=== PATIENT | female | born 1955 | race Caucasian/White ===

== ENCOUNTER 2018-12-22 05:40 | Day surgery (SDC) | payer BC ==
[~2018-12-22] VITALS: Ht 167.6 cm; Wt 68.0 kg
[~2018-12-22 05:40] MED LIST: ASPIRIN325 MG PO; COMBIVENT RESPIM4 GM INH; RANITIDINE HCL150 MG PO; TUSSIN100 MG/52 PO; VENTOLIN HFA18 GM INH
--- NOTE | 2018-12-22 09:16 | NUR ---
12/22/18 0916 Caroline Santillan 0820 PT ARRIVED IN PACU WIDE AWAKE WITH NO C/O'S. 0840 XRAY AT BEDSIDE DOING 3 VIEW OF L FOOT. 0850 DC INSTRUCTIONS GIVEN. 0900 SURGICAL SHOE PLACED ON L FOOT. LEFT VIA W/C WITH RN TO CAR.
--- NOTE | 2019-01-05 09:07 | OR ---
[facility] [address], [place] [address] Signed DATE OF OPERATION: 12/22/2018 SURGEON: Raji Augustine DPM PREOPERATIVE DIAGNOSES: 1. Tailor bunion, left foot. 2. Osteophyte, medial left hallux. POSTOPERATIVE DIAGNOSES: 1. Tailor bunion, left foot. 2. Osteophyte, medial left hallux. END FRAZER SURGEON: Kaz Martinez DPM ANESTHESIA: IV general with local block, left foot. SPECIMEN: To pathology, none. DESCRIPTION OF PROCEDURE: The patient was brought to the operating room and placed on the table in the supine position. Anesthesia Department administered IV sedation, after which a local block was given to the left foot using a total of 14 mL, 1:1 mixture, 2% lidocaine plain and 0.5% ropivacaine plain. The left leg and foot were then prepped and draped in the usual sterile manner. An Esmarch was used for hemostasis. PROCEDURE #1: Tailor bunionectomy, left 5th metatarsal. Attention was initially directed to the dorsal/lateral aspect left 5th metatarsal head, where a linear longitudinal incision was made. The incision was approximately 4 cm in length. Initially full-thickness through the dermis then deepened through subcutaneous tissue using careful dissection and cautery as necessary for hemostasis. Once at the level of the deep fascia and joint capsule, an incision was made deep to bone reflecting soft tissues to expose the lateral aspect of the 5th metatarsal head. Bony prominence to this site was immediately noted. This was then resected removing a small amount of bone to the lateral aspect of the 5th metatarsal head with power instrumentation. The Electronically Signed By: RAJI AUGUSTINE DPM 01/05/19 0907 PATIENT NAME: OSMAR FOOTE OPERATIVE REPORT DATE OF : 53 REPORT #: [id number] PHYSICIAN: RAJI AUGUSTINE DPM PCP: TRISTAN BACH MD REPORT IS CONFIDENTIAL AND NOT TO BE RELEASED WITHOUT AUTHORIZATION [facility] [address], [place] [address] Signed patient's primary problem, however, was increased pressure and callus at the plantar 5th metatarsal head. Therefore, at this time, it was also deemed necessary to resect a small amount of bone from the plantar 5th metatarsal head. This was also done with power instrumentation, removing a thin section of bone at this site. The lateral and plantar aspects of the 5th metatarsal head then smoothed with a hand rasp. The surgical site then irrigated with copious amounts of normal saline and deep soft tissues closed using 4-0 Vicryl, subcutaneous tissue closed using 4-0 Vicryl and skin closed using 5-0 nylon monofilament suture. PROCEDURE #2: Exostectomy, medial left hallux. Attention was directed to the medial aspect left hallux where a linear longitudinal incision was made centered over the medial condyle at the base of the distal phalanx. The incision was initially full-thickness through the dermis then deepened through subcutaneous tissue using careful dissection and cautery as necessary for hemostasis. The incision then deepened to bone and soft tissue was reflected to expose the bony prominence at this site, which was then resected using hand instrumentation and smoothed using a hand rasp. The surgical site was then irrigated with copious amounts of normal saline. Deep soft tissues then closed using 4-0 Vicryl and skin closed using 5-0 nylon monofilament suture. Dressings were then applied using Adaptic, Betadine-soaked gauze, dry gauze, Kerlix fluffs, Flexicon, and Coban for mild compression. Dressings to both surgical sites were the same. A postoperative injection was given prior to placement of the dressings. Injection utilized 10 cc of a 9:1 mixture, 0.5% ropivacaine plain, and dexamethasone phosphate, the injection was divided between both surgical sites. ESTIMATED BLOOD LOSS: Less than 5 mL. INTRAOPERATIVE COMPLICATIONS: None. Raji Augustine DPM Electronically Signed By: RAJI AUGUSTINE DPM 01/05/19 0907 PATIENT NAME: OSMAR FOOTE OPERATIVE REPORT DATE OF : 53 REPORT #: [id number] PHYSICIAN: RAJI AUGUSTINE DPM PCP: TRISTAN BACH MD REPORT IS CONFIDENTIAL AND NOT TO BE RELEASED WITHOUT AUTHORIZATION [address] [address] Signed GO/STAR /[id number] Copies: ~ Electronically Signed By: RAJI AUGUSTINE DPM 01/05/19 0907 PATIENT NAME: OSMAR FOOTE OPERATIVE REPORT DATE OF : 53 REPORT #: [id number] PHYSICIAN: RAJI AUGUSTINE DPM PCP: TRISTAN BACH MD REPORT IS CONFIDENTIAL AND NOT TO BE RELEASED WITHOUT AUTHORIZATION
== END 2018-12-22 09:00 | disposition home or self-care (01) ==
LOC: OPS 05:40 → DS 05:40 → OPS 06:45
PROVIDERS: Podiatrist Foot Surgery
PROC: 0QBP0ZZ Excision of Left Metatarsal, Open Approach (ICD-10-PCS; principal; 2018-12-22 06:45)
PROC: 0QBP0ZZ Excision of Left Metatarsal, Open Approach (ICD-10-PCS; 2018-12-22 06:45)
DX: M21.622 Bunionette of left foot (principal); M25.775 Osteophyte, left foot; J45.909 Unspecified asthma, uncomplicated; G62.9 Polyneuropathy, unspecified; F17.210 Nicotine dependence, cigarettes, uncomplicated; Z88.0 Allergy status to penicillin; Z88.1 Allergy status to other antibiotic agents; Z88.5 Allergy status to narcotic agent; Z79.899 Other long term (current) drug therapy; Z79.82 Long term (current) use of aspirin; Z79.51 Long term (current) use of inhaled steroids
CPT/HCPCS: 01480; 73630; J1100; J1885; J2405; J2704; J2795; J3010; J7120

== ENCOUNTER 2019-03-24 13:41 | Emergency (ER) | payer BC ==
[~2019-03-24] VITALS: Ht 167.6 cm; Wt 68.0 kg
--- OUTSIDE RECORDS SUMMARY | ~2019-03-24 | XMS | Encounter Summary ---
Demographics + + + | Address | [address] | | | [place] [address] | + + + | Home Phone | | + + + | Preferred Language | Unknown | + + + | Marital Status | | + + + | Protestant Affiliation | Unknown | + + + | Race | Unknown | + + + | Ethnic Group | Unknown | + + + Author + + + | Author | [facility] | | | and [place] | + + + | Organization | [facility] | | | and [place] | + + + | Address | Unknown | + + + | Phone | Unavailable | + + + Support + + + + + | Name | Relationship | Address | Phone | + + + + + | Home Krishna | ECON | [address] | | | | | [place] | | | | | [address] | | + + + + + | Daisy Castillo | ECON | Unknown | | + + + + + Care Team Providers + +------+ + | Care Bacon Skinner Name | Role | Phone | + +------+ + | Tien Rojsa MD | PCP | Unavailable | + +------+ + Reason for Referral Diagnostic/Screening (Routine) +--------+--------+ + + + + | Status | Reason | Specialty | Diagnoses / | Referred By | Referred To | | | | | Procedures | Contact | Contact | +--------+--------+ + + + + | Closed | | Radiology | Diagnoses | | [address] | | | | | Pulmonary | Saqib, | [address] | | | | | nodules | Kevin | [place], | | | | | Procedures | [place] | [place] [address] | | | | | CT Chest wo | [address] | Phone: | | | | | Contrast | [address] [place] | [phone] | | | | | | [place] | Fax: | | | | | | [address] | [phone] | | | | | | Phone: | | | | | | | [phone] | | | | | | | Fax: | | | | | | | [phone] | | +--------+--------+ + + + + Diagnostic/Screening (Routine) +--------+--------+ + + + + | Status | Reason | Specialty | Diagnoses / | Referred By | Referred To | | | | | Procedures | Contact | Contact | +--------+--------+ + + + + | Closed | | Radiology | Diagnoses | | [address] | | | | | Pulmonary | [place], | [address] | | | | | nodules | Kevin | [place], | | | | | Procedures | [place] | [place] [address] | | | | | CT Chest wo | [address] | Phone: | | | | | Contrast | [address] [place] | [phone] | | | | | | [place], [place] | Fax: | | | | | | [address] | [phone] | | | | | | Phone: | | | | | | | [phone] | | | | | | | Fax: | | | | | | | [phone] | | +--------+--------+ + + + + Reason for Visit Diagnostic/Screening (Routine) +--------+--------+ + + + + | Status | Reason | Specialty | Diagnoses / | Referred By | Referred To | | | | | Procedures | Contact | Contact | +--------+--------+ + + + + | Closed | | Radiology | Diagnoses | | [address] | | | | | Pulmonary | [place], | [address] | | | | | nodules | Kevin | [place], | | | | | Procedures | [place] | [place] [address] | | | | | CT Chest wo | [address] | Phone: | | | | | Contrast | [place] | [phone] | | | | | | [place] | Fax: | | | | | | [address] | [phone] | | | | | | Phone: | | | | | | | [phone] | | | | | | | Fax: | | | | | | | [phone] | | +--------+--------+ + + + + Encounter Details +--------+ + + + + | Date | Type | Department | Care Team | Description | +--------+ + + + + | 03/09/ | Hospital | [facility] | Kevin [place] | Pulmonary nodules | | 2019 | Encounter | [facility] [address] | [place] [address] | | | | | [address] [place], | [address] [place] | | | | | [place] [address] | [place] [address] | | | | | [phone] | [phone] | | | | | | | | +--------+ + + + + Social History + + + +--------+ + | Tobacco Use | Types | Packs/Day | Years | Date | | | | | Used | | + + + +--------+ + | Current Every Day | Cigarettes | 1 | 45 | Started: 07/09/1972 | | Smoker | | | | | + + + +--------+ + + +---+---+--------+ | Smokeless Tobacco: | | | Quit: | | Former User | | | 2015 | + +---+---+--------+ + + +---------+ + | Alcohol Use | Drinks/We | oz/Week | Comments | | | ek | | | + + +---------+ + | Yes | | | 6 drinks per year | + + +---------+ + + + + | Sex Assigned at | Date Recorded | | | | + + + | Not on file | | + + + + + + + | Job Start Date | Occupation | Industry | + + + + | Not on file | Not on file | Not on file | + + + + + + + + | Travel History | Travel Start | Travel End | + + + + + + | No recent travel history available. | + + documented as of this encounter Medications at Time of Discharge + + + +---------+ + + | Medication | Sig | Dispensed | Refills | Start | End Date | | | | | | Date | | + + + +---------+ + + | acetaminophen | Take 325 mg by mouth | | 0 | | | | (TYLENOL) 325 mg | as needed. | | | | | | tablet | | | | | | + + + +---------+ + + | albuterol | Inhale 1-2 puffs | | 0 | | | | (PROVENTIL HFA) 90 | into the lungs | | | | | | mcg/puff inhaler | Daily. | | | | | + + + +---------+ + + | aspirin 325 mg | Take 325 mg by mouth | | 0 | | | | tablet | Daily. | | | | | + + + +---------+ + + | B Complex Vitamins | Take by mouth. | | 0 | | | | (VITAMIN B COMPLEX | | | | | | | PO) | | | | | | + + + +---------+ + + | betamethasone | Apply 2-3 | | 0 | | | | dipropionate 0.05% | Application | | | | | | lotion | topically Twice | | | | | | | daily as needed. 2-3 | | | | | | | GTTS in each ear | | | | | | | twice daily as | | | | | | | needed | | | | | + + + +---------+ + + | buPROPion | Take 100 mg by mouth | | 0 | | | | (WELLBUTRIN) 100 mg | Daily. | | | | | | tablet | | | | | | + + + +---------+ + + | calcium carbonate | Take 1 tablet by | | 0 | | | | (TUMS) 500 mg | mouth as needed for | | | | | | chewable tablet | Heartburn. | | | | | + + + +---------+ + + | diphenhydrAMINE | Take 50 mg by mouth | | 0 | | | | (BENADRYL) 50 MG | Daily. | | | | | | tablet | | | | | | + + + +---------+ + + | docusate sodium | Take 250 mg by mouth | | 0 | | | | (COLACE) 250 MG | Daily. | | | | | | capsule | | | | | | + + + +---------+ + + | FLUTICASONE | 0.055 mg by Nasal | | 0 | | | | FUROATE NA | route. 2 Sprays in | | | | | | | each nostril by | | | | | | | intranasal route | | | | | | | daily | | | | | + + + +---------+ + + | | Take 1 capsule by | | 0 | | | | Glucosamine-Chondroi | mouth Daily. | | | | | | t-Vit C-Mn | | | | | | | (GLUCOSAMINE CHONDR | | | | | | | 1500 COMPLX) CAPS | | | | | | + + + +---------+ + + | guaiFENesin | Take 200 mg by mouth | | 0 | | | | (TUSSIN CHEST | 3 times daily as | | | | | | CONGESTION) 100 mg/5 | needed. | | | | | | mL syrup | | | | | | + + + +---------+ + + | | Take 15 mLs by mouth | | 0 | | | | HYDROcodone-acetamin | Twice daily as | | | | | | ophen (HYCET) | needed for Pain. | | | | | | 7.5-325 mg/15 mL | | | | | | | liquid | | | | | | + + + +---------+ + + | ibuprofen | Take 800 mg by mouth | | 0 | | | | (ADVIL,MOTRIN) 800 | every 6 hours as | | | | | | MG tablet | needed for Pain. | | | | | + + + +---------+ + + | lactobacillus GG | Take 1 capsule by | | 0 | | | | (CULTURELLE) capsule | mouth Daily. | | | | | + + + +---------+ + + | Loratadine 10 MG | Take 1 capsule by | | 0 | | | | CAPS | mouth Daily. | | | | | + + + +---------+ + + | mometasone | Apply 1 Application | | 0 | | | | (ELOCON) 0.1 % | topically as needed. | | | | | | ointment | | | | | | + + + +---------+ + + | multivitamin | Take 1 tablet by | | 0 | 07/29/20 | | | (THERAGRAN) tablet | mouth Daily. | | | 12 | | + + + +---------+ + + | nefazodone | Take 150 mg by mouth | | 0 | | | | (SERZONE) 50 MG | nightly. | | | | | | tablet | | | | | | + + + +---------+ + + | omeprazole | Take 20 mg by mouth | | 0 | | | | (PRILOSEC) 20 mg | every morning | | | | | | capsule | (before breakfast). | | | | | | | | | | | | + + + +---------+ + + | | Take 2 tablets by | | 0 | | | | Phenylephrine-Acetam | mouth as needed | | | | | | inophen (TYLENOL | (Allergies). | | | | | | SINUS | | | | | | | CONGESTION/PAIN PO) | | | | | | + + + +---------+ + + | Potassium | Take 1 tablet by | | 0 | | | | Gluconate 595 (99 K) | mouth every morning. | | | | | | MG TABS | | | | | | + + + +---------+ + + | | Take 10 mLs by mouth | | 0 | | | | promethazine-codeine | 4 times daily as | | | | | | (PHENERGAN WITH | needed for Cough. | | | | | | CODEINE) 6.25-10 | | | | | | | mg/5 mL syrup | | | | | | + + + +---------+ + + | ranitidine | Take 150 mg by mouth | | 0 | | | | (ZANTAC) 150 MG | Daily. | | | | | | capsule | | | | | | + + + +---------+ + + | SIMETHICONE PO | Take 25 mg by mouth | | 0 | | | | | as needed. | | | | | + + + +---------+ + + | traMADol (ULTRAM) | Take 100 mg by mouth | | 0 | | | | 50 mg tablet | nightly as needed. | | | | | + + + +---------+ + + documented as of this encounter Plan of Treatment +--------+ + + + + | Date | Type | Specialty | Care Team | Description | +--------+ + + + + | 03/13/ | Appointment | Oncology | Kevin [place] | | | 2019 | | | [place] [address] | | | | | | [address] | | | | | | [place] [address] | | | | | | [phone] | | | | | | | | +--------+ + + + + documented as of this encounter Procedures + +--------+ + + + | Procedure Name | Priori | Date/Time | Associated Diagnosis | Comments | | | ty | | | | + +--------+ + + + | CT CHEST WO CONTRAST | Routin | 03/09/2019 | Pulmonary nodules | Results for this | | | e | 12:41 PDT | | procedure are in the | | | | | | results section. | + +--------+ + + + documented in this encounter Results CT Chest wo Contrast (03/09/2019 12:41 PDT) + + | Specimen | + + | | + + + + + | Narrative | Performed At | + + + | CT CHEST WO CONTRAST 03/09/2019 12:41 PM HISTORY: follow-up of | [facility] | | pulmonary nodules. COMPARISON: 03/05/2018 PROTOCOL: Axial | | | images of the chest were obtained. Coronal and sagittal reformations | | | were acquired. FINDINGS: LUNGS: There is no evidence for | | | pleural effusion or pneumothorax. Stable mild scarring in the left | | | lingula and right middle lobe. There appears to be mild mucous | | | plugging or less likely endobronchial lesions within the right lower | | | lobe anterior segment on images 91-92 of series 603. Multiple other | | | areas of subtle mucous plugging identified. Tiny groundglass | | | consolidation is seen in the right lung apex on image 30 of series 4 | | | which is stable. Mild focal bilateral lower lobe and right middle | | | lobe bronchiectasis. Background of mild COPD changes. No evidence of | | | consolidation. Stable appearance of a few calcified granulomas. No | | | suspicious new mass or nodule identified. HEART: Trace pericardial | | | effusion. Heart is within the upper limits of normal for size. | | | Prominent coronary artery calcifications are present. VASCULATURE: | | | Aorta and pulmonary arteries are normal in size and without acute | | | abnormality on non-contrast CT. LYMPH NODES: No evidence of axillary, | | | mediastinal, or hilar lymphadenopathy. MEDIASTINUM: Trachea and | | | esophagus are normal. Neck base is normal. ABDOMEN: The upper abdomen | | | demonstrates no acute findings. Similar mild nodular thickening of | | | the left adrenal gland. SOFT TISSUES: Similar surgical clips in the | | | left axilla. No evidence of axillary lymphadenopathy. Anterior chest | | | wall soft tissues are within normal limits. BONES: There are no acute | | | osseous abnormalities. Multilevel moderate thoracic spondylosis. | | | Mild diffuse osteopenia. IMPRESSION - Stable appearance of | | | multiple small nodules and areas of mild mucous plugging (much less | | | likely endobronchial lesions) as detailed above. No suspicious | | | mass or lymphadenopathy identified. Similar scarring and mild | | | bronchiectasis involving the left lingula and right middle lobe. | | | Background of mild COPD/emphysematous changes. Dictated and Signed | | | by: Ilya Mayorga MD Electronically signed: 03/10/2019 3:25 PM | | | | | + + + + + | Procedure Note | + + | Ubaldo, Rad Results In - 03/10/[address] CHEST WO CONTRAST 03/09/2019 12:41 PM | | | | HISTORY: follow-up of pulmonary nodules. | | | | COMPARISON: 03/05/2018 | | | | PROTOCOL: Axial images of the chest were obtained. Coronal and sagittal | | reformations were acquired. | | | | FINDINGS: | | | | LUNGS: There is no evidence for pleural effusion or pneumothorax. Stable mild | | scarring in the left lingula and right middle lobe. There appears to be mild | | mucous plugging or less likely endobronchial lesions within the right lower lobe | | anterior segment on images 91-92 of series 603. Multiple other areas of subtle | | mucous plugging identified. Tiny groundglass consolidation is seen in the right | | lung apex on image 30 of series 4 which is stable. Mild focal bilateral lower | | lobe and right middle lobe bronchiectasis. Background of mild COPD changes. No | | evidence of consolidation. Stable appearance of a few calcified granulomas. No | | suspicious new mass or nodule identified. | | HEART: Trace pericardial effusion. Heart is within the upper limits of normal | | for size. Prominent coronary artery calcifications are present. | | VASCULATURE: Aorta and pulmonary arteries are normal in size and without acute | | abnormality on non-contrast CT. | | LYMPH NODES: No evidence of axillary, mediastinal, or hilar lymphadenopathy. | | MEDIASTINUM: Trachea and esophagus are normal. Neck base is normal. | | ABDOMEN: The upper abdomen demonstrates no acute findings. Similar mild nodular | | thickening of the left adrenal gland. | | SOFT TISSUES: Similar surgical clips in the left axilla. No evidence of axillary | | lymphadenopathy. Anterior chest wall soft tissues are within normal limits. | | BONES: There are no acute osseous abnormalities. Multilevel moderate thoracic | | spondylosis. Mild diffuse osteopenia. | | | | IMPRESSION - | | Stable appearance of multiple small nodules and areas of mild mucous plugging | | (much less likely endobronchial lesions) as detailed above. | | | | No suspicious mass or lymphadenopathy identified. | | | | Similar scarring and mild bronchiectasis involving the left lingula and right | | middle lobe. | | | | Background of mild COPD/emphysematous changes. | | | | Dictated and Signed by: Ilya Mayorga MD | | Electronically signed: 03/10/2019 3:25 PM | + + + +---------+ + + | Performing | Address | City/State/Zipcode | Phone Number | | Organization | | | | + +---------+ + + | [facility] | | | | + +---------+ + + documented in this encounter Visit Diagnoses + + | Diagnosis | + + | Pulmonary nodules Other nonspecific abnormal finding of lung field | + + documented in this encounter"
--- OUTSIDE RECORDS SUMMARY | ~2019-03-24 | XMS | Encounter Summary ---
Demographics + + + | Address | [address] | | | [place] [address] | + + + | Home Phone | | + + + | Preferred Language | Unknown | + + + | Marital Status | | + + + | Yazidism Affiliation | Unknown | + + + | Race | Unknown | + + + | Ethnic Group | Unknown | + + + Author + + + | Author | [facility] | | | and [place] | + + + | Organization | [facility] | | | and [place] | + + + | Address | Unknown | + + + | Phone | Unavailable | + + + Support + + + + + | Name | Relationship | Address | Phone | + + + + + | Home Krishna | ECON | [address] | | | | | [place] | | | | | [address] | | + + + + + | Daisy Castillo | ECON | Unknown | | + + + + + Care Team Providers + +------+ + | Care Metrology Technician Name | Role | Phone | + +------+ + | Tien Rojas MD | PCP | Unavailable | + +------+ + Reason for Referral Diagnostic/Screening (Routine) + +--------+ + + + + | Status | Reason | Specialty | Diagnoses / | Referred By | Referred To | | | | | Procedures | Contact | Contact | + +--------+ + + + + | Pending | | Radiology | Diagnoses | | [facility] | | Review | | | | Saqib, | [facility] | | | | | Infiltrating | Kevin | [facility] | | | | | ductal | [facility] | MEDICAL | | | | | carcinoma of | [address] | CENTER [address] | | | | | breast, | [address] [place] | [place] | | | | | unspecified | [place], [place] | [place], | | | | | laterality | [address] | [place] [address] | | | | | (HCC) | Phone: | Phone: | | | | | Procedures | [phone] | [phone] | | | | | CT Chest wo | Fax: | Fax: | | | | | Contrast | [phone] | [phone] | + +--------+ + + + + Reason for Visit + + + | Reason | Comments | + + + | Follow-up | | + + + Evaluate & Treat (Routine) + +--------+ + + + + | Status | Reason | Specialty | Diagnoses / | Referred By | Referred To | | | | | Procedures | Contact | Contact | + +--------+ + + + + | Authorized | | Medical | Diagnoses | [facility] | Saqib, | | | | Oncology / | | Medical | Kevin | | | | Oncology | INFILTRATING | Oncology | [facility] | | | | | DUCTAL | Clinic [address] | [address] | | | | | CARCIN[place], | [address] [place] | [place] | | | | | LEFT BREAST | [place], | [place], [place] | | | | | Procedures | [place] | [address] Phone: | | | | | [address] | [address] | [phone] | | | | | | Phone: | Fax: | | | | | | [phone] | [phone] | | | | | | Fax: | | | | | | | [phone] | | + +--------+ + + + + Encounter Details +--------+ + + + + | Date | Type | Department | Care Team | Description | +--------+ + + + + | 03/09/ Hospital | [facility] | Kevin Cerrato | Infiltrating ductal | | 2019 | Encounter | [facility] | [facility] [address] | carcinoma of breast, | | | | [facility] CLIN[facility] [address] [place] | unspecified | | | | [address] [place] [place] | [place] [address] | laterality (HCC) | | | | [place] [address] | [phone] | (Primary Dx) | | | | [phone] | | | +--------+ + + + [...] | | Former User | | | 2014 | + +---+---+--------+ + + +---------+ + [...] + + documented as of this encounter Last Filed Vital Signs + + + + | Vital Sign | Reading | Time Taken | + + + + | Blood Pressure | 125/64 | 03/09/20191351 PDT | + + + + | Pulse | 93 | 03/09/20191351 PDT | + + + + | Temperature | 36.3 C (97.3 F) | 03/09/20191351 PDT | + + + + | Respiratory Rate | - | - | + + + + | Oxygen Saturation | 96% | 03/09/20191351 PDT | + + + + | Inhaled Oxygen | - | - | | Concentration | | | + + + + | Weight | 74.2 kg (163 lb 9.3 | 03/09/2019 1352 PDT | | | oz) | | + + + + | Height | - | - | + + + + | Body Mass Index | 27.22 | 10/01/2017 1020 PST | + + + + documented in this encounter Medications at Time of Discharge [...] + + documented as of this encounter Progress Notes Kevin Cerrato MD - 03/09/2019 1406 PDTFormatting of this note might be differen t from the original. Hem-Onc Progress Note [facility] Pt. Name/Age/: Liliana Levine 63 y.o. 1955 Med. Record Number: [id number] Date of admission: 03/09/2019 Assessment and plan: 1. Carcinoma of the left breast. a. Infiltrating ductal carcinoma. b. Clinical T2 N1 stage IIB. c. ER/SC negative, HER-2/marietta negative consistent with triple negative phenotype. d. Neoadjuvant chemotherapy induction as a part of CALGB clinical trial, group 2. e. Complete pathologic response to neoadjuvant induction chemotherapy status post lumpectom y and axillary lymph node dissection October 2012, Dr. Ted Castillo. 2. Left breast sinus tract following lumpectomy 3. Left subclavian DVT 4. COPD with emphysema A counseling session today first to review the results of a CT scan of the chest with image s that I was able to personally view disclosing no new pulmonary nodular densities or other abnormalities to suggest emergence of primary cancer. Areas of pulmonary emphysema identifi ed again including those involving the lower lobe consistent with ongoing pulmonary obstruct ion. I discussion today concerning the significance of this finding describing the patient the sometimes accelerated course of emphysema to a patient coming up to the edge of a jazzmine. Review of today's physical exam reassuring with regard to continuing remission of patient's breast cancer. Currently believe our follow-up in the cancer Center can now be on an annua l basis. Agent will also be scheduled for recheck CT scan for ongoing lung cancer screening . Subjective: The patient chart and medications were reviewed in detail and the patient was seen and exam ined. Liliana Levine is a 63 y.o. female who returns today for follow-up and surveillance monit oring of her remission of breast cancer. Patient also returns to continue surveillance of earlier pulmonary nodular densities occurr ing in the setting of high risk for development of lung cancer. Patient has an extensive pr evious smoking history and remains an active smoker with secondary emphysema from COPD. Pat ient also experiencing more respiratory symptoms describing several episodes at work over th e past several weeks of paroxysms of cough. She has not however short of breath on exertion and continues full-time work. Other medical history include recent evaluation because of d egenerative disease involving the lumbar spine and left knee. Patient also undergoing recen t podiatric surgery because of heel spurs. PSH: Reviewed, no changes to admission H&P. Past Medical History: Diagnosis Date Allergic rhinitis Breast CA (HCC) triple negative Carpal tunnel syndrome of right wrist Glaucoma minor Hip pain, left Hypertension Knee pain, left Lumbar radiculopathy Osteoarthritis of lumbar spine Spondylolisthesis Thoracic back pain Vulvar cancer (HCC) Past Surgical History: Procedure Laterality Date APPENDECTOMY 1978 [facility] bone spurs Left 12/22/2018 Dr. Raji Augustine BREAST LUMPECTOMY Left 10/26/2012 wire localized, with full axillary lymph node dissection and removal of a left-sided subca vian [facility] BREAST LUMPECTOMY Left 03/2012 infiltrating ductal carcinoma by biopsy CARPAL TUNNEL RELEASE Bilateral 2016 [facility] CATARACT REMOVAL Bilateral 2017 SINUS SURGERY TONSILLECTOMY 2004 [facility] TUBAL LIGATION VULVA SURGERY 2008 Squamous cell carcinoma Review of Systems: Constitutional: Denies fatigue-energy low but continues to work 5 hrs/day at [employer]. Denie s high fevers, shaking chills, anorexia, vomiting, weight loss, nightly night sweats. Appet ite ok. Occasional nausea or heart burn. Ear, Nose, Mouth, Throat: Denies odynophagia, dysphagia, or tinnitus. Cardiovascular: Reports shortness of breath, dyspnea on exertion, Denies chest pain, palpi tations or orthopnea. She had EKG prior to surgery. Respiratory: Denies cough, hemoptysis, or sputum production. Gastrointestinal: Denies abdominal pain, constipation, diarrhea, melena, or bright red bloo d per rectum. Genitourinary: Denies hematuria or dysuria. Musculoskeletal: Denies joint pain or tenderness. Leg cramps relief with OTC Neurologic: Denies visual changes,reports ongoing numbness & tingling in her toes and ball s of her feet. Occassional sinus headaches. Endocrine: Denies peripheral edema or heat/cold intolerance. Hematologic: Denies spontaneous bruising or bleeding. Integumentary: Denies rash, wounds or other skin concerns. Pain: Pain in lower back, left hip, left knee 01/23 Review of systems as above otherwise negative Scheduled Medications: Continuous Infusions: PRN Meds:. Allergy: Allergies Allergen Reactions Cefazolin Itching, Swelling and Rash Throat Swelling; redness Dexamethasone Other (See Comments) Aggressive; angry Prednisone Other (See Comments) Aggressive, Angry Acetaminophen-Codeine Chantix [Varenicline] Other (See Comments) Aggression, acid reflux Hydrocodone Penicillins Trazodone nightmares Vancomycin Itching Current Outpatient Medications on File Prior to Encounter Medication Sig Dispense Refill acetaminophen (TYLENOL) 325 mg tablet Take 325 mg by mouth as needed. albuterol (PROVENTIL HFA) 90 mcg/puff inhaler Inhale 1-2 puffs into the lungs Daily. aspirin 325 mg tablet Take 325 mg by mouth Daily. B Complex Vitamins (VITAMIN B COMPLEX PO) Take by mouth. betamethasone dipropionate 0.05% lotion Apply 2-3 Application topically Twice daily as needed. 2-3 GTTS in each ear twice daily as needed buPROPion (WELLBUTRIN) 100 mg tablet Take 100 mg by mouth Daily. calcium carbonate (TUMS) 500 mg chewable tablet Take 1 tablet by mouth as needed for He artburn. diphenhydrAMINE (BENADRYL) 50 MG tablet Take 50 mg by mouth Daily. docusate sodium (COLACE) 250 MG capsule Take 250 mg by mouth Daily. FLUTICASONE FUROATE NA 0.055 mg by Nasal route. 2 Sprays in each nostril by intranasal route daily Parjydmrmww-Kmxydurei-Kfn C-Mn (GLUCOSAMINE CHONDR 1500 COMPLX) CAPS Take 1 capsule by mouth Daily. guaiFENesin (TUSSIN CHEST CONGESTION) 100 mg/5 mL syrup Take 200 mg by mouth 3 times da devi as needed. HYDROcodone-acetaminophen (HYCET) 7.5-325 mg/15 mL liquid Take 15 mLs by mouth Twice d aily as needed for Pain. ibuprofen (ADVIL,MOTRIN) 800 MG tablet Take 800 mg by mouth every 6 hours as needed for Pain. lactobacillus GG (CULTURELLE) capsule Take 1 capsule by mouth Daily. Loratadine 10 MG CAPS Take 1 capsule by mouth Daily. mometasone (ELOCON) 0.1 % ointment Apply 1 Application topically as needed. multivitamin (THERAGRAN) tablet Take 1 tablet by mouth Daily. nefazodone (SERZONE) 50 MG tablet Take 150 mg by mouth nightly. omeprazole (PRILOSEC) 20 mg capsule Take 20 mg by mouth every morning (before breakfast ). Phenylephrine-Acetaminophen (TYLENOL SINUS CONGESTION/PAIN PO) Take 2 tablets by mouth as needed (Allergies). Potassium Gluconate 595 (99 K) MG TABS Take 1 tablet by mouth every morning. promethazine-codeine (PHENERGAN WITH CODEINE) 6.25-10 mg/5 mL syrup Take 10 mLs by mout h 4 times daily as needed for Cough. ranitidine (ZANTAC) 150 MG capsule Take 150 mg by mouth Daily. SIMETHICONE PO Take 25 mg by mouth as needed. traMADol (ULTRAM) 50 mg tablet Take 100 mg by mouth nightly as needed. No current facility-administered medications on file prior to encounter. Objectives: Temp: 36.3 C (97.3 F) BP: 125/64 Pulse: 93 SpO2: 96 % on Min/Max Temp past 24 hours:Temp Av.3 C (97.3 F) Min: 36.3 C (97.3 F) Max: 3 6.3 C (97.3 F) No intake or output data in the 24 hours ending 03/09/19 1406 Wt. Admission: Weight: 74.2 kg (163 lb 9.3 oz) Wt. Current: Weight: 74.2 kg (163 lb 9.3 oz) Physical Exam: Exam: General: The patient is alert and oriented. No acute distress. HEENT: PERRL, Oral mucosa intact. Neck is supple. Cardiovascular: Regular rate and rhythm, no murmur. Respiratory: Reduced breath sounds but clear Breast: Left lumpectomy site well healed. Adjoining left axilla without palpable enlargem ents. Right breast normal to inspection and palpation. Abdomen: Soft, nontender, no hepatospenomegaly. No palpable masses. Bowel sounds present. Genitourinary: Deferred. Extremities: Nontender, no erythema, no edema. Skin: No rashes, bruising, or petechiae. Lymph: No palpable nodes in the neck, supraclavicular fossa, axilla or groin. Neurological: Cranial nerves are intact. Normal sensory and motor function, No focal defi cits noted. Muscular/Skeletal: No acute bony tenderness. Psychiatric: Normal mood and affect. Diagnostic studies: Available data and images were reviewed personally. See reports. Significant results and findings are addressed here or in the Assessment and Plan. Recent Labs Lab 03/09/19 1207 WBC 7.3 HGB 14.4 HCT 43.4 PLT 228 Recent Labs Lab 03/09/19 1207 NA 136 K 3.9 CL 102 CO2 27 BUN 13 CREA 0.81 GLU 126* CALCIUM 9.6 BILITOT 0.4 AST 21 ALT 20 ALKPHOS 90 ALBUMIN 4.4 Electronically signed by: Kevin Cerrato, 03/09/2019 14:06 [facility] TIME SPENT 25 MIN. > 50% AT BEDSIDE, WITH FAMILY/PATIENT IN CARE AND LAYOUT INSPECTOR ON UNIT AND CO ORDINATION OF CARE Portions of this chart may have been created with [employer] voice recognition software. Occasi onal wrong-word or sound-alike substitutions may have occurred due to the inherent medrano itations of voice recognition software. Please read the chart carefully and recognize, using context, where these substitutions have occurred. Theodora Rodriguez RN - 03/09/2019 1352 PDTREVIEW OF SYSTE MS Constitutional: Denies fatigue-energy low but continues to work 5 hrs/day at [employer]. Denie s high fevers, shaking chills, anorexia, vomiting, weight loss, nightly night sweats. Appet ite ok. Occasional nausea or heart burn. Ear, Nose, Mouth, Throat: Denies odynophagia, dysphagia, or tinnitus. Cardiovascular: Reports shortness of breath, dyspnea on exertion, Denies chest pain, palpi tations or orthopnea. She had EKG prior to surgery. Respiratory: Denies cough, hemoptysis, or sputum production. Gastrointestinal: Denies abdominal pain, constipation, diarrhea, melena, or bright red bloo d per rectum. Genitourinary: Denies hematuria or dysuria. Musculoskeletal: Denies joint pain or tenderness. Leg cramps relief with OTC Neurologic: Denies visual changes,reports ongoing numbness & tingling in her toes and ball s of her feet. Occassional sinus headaches. Endocrine: Denies peripheral edema or heat/cold intolerance. Hematologic: Denies spontaneous bruising or bleeding. Integumentary: Denies rash, wounds or other skin concerns. Pain: Pain in lower back, left hip, left knee 01/23 Note: Here for 6 month follow up and labs. My chart: no computer documented in this enc ounter Plan of Treatment +--------+ + + + + | Date | Type | Specialty | Care Team | Description | +--------+ + + + + | 03/13/ | Appointment | Oncology | Kevin Cerrato | | | 2019 | | | [facility] [address] | | | | | [address] | | | | | | [place] [address] | | | | | | [phone] | | | | | | | | +--------+ + + + + + +--------+ + + | Name | Priori | Associated Diagnoses | Order Schedule | | | ty | | | + +--------+ + + | CT Chest wo Contrast | Routin | Infiltrating | Expected: | | | e | ductal carcinoma of | 03/09/2020, Expires: | | | | breast, unspecified | 03/09/2020 | | | | laterality (HCC) | | + +--------+ + + documented as of this encounter Procedures + +--------+ + + + | Procedure Name | Priori | Date/Time | Associated Diagnosis | Comments | | | ty | | | | + +--------+ + + + | PROTIME INR | STAT | 03/09/2019 | Infiltrating | Results for this | | | | 12:07 PDT | ductal carcinoma of | procedure are in the | | | | | breast, unspecified | results section. | | | | | laterality (HCC) | | + +--------+ + + + | CBC WITH | STAT | 03/09/2019 | Infiltrating | Results for this | | DIFFERENTIAL | | 12:07 PDT | ductal carcinoma of | procedure are in the | | | | | breast, unspecified | results section. | | | | | laterality (HCC) | | + +--------+ + + + | COMPREHENSIVE | STAT | 03/09/2019 | Infiltrating | Results for this | | METABOLIC PANEL | | 12:07 PDT | ductal carcinoma of | procedure are in the | | | | | breast, unspecified | results section. | | | | | laterality (HCC) | | + +--------+ + + + documented in this encounter Results Comprehensive Metabolic Panel (03/09/2019 12:07 PDT) + + + + + + | Component | Value | Ref Range | Performed | Pathologist | | | | | At | Signature | + + + + + + | Na | 136 | 136 - 145 | [facility] | | | | | mmol/L | [facility] | | [facility] | | | | | | [facility] - | | | | | | LABORATORY | | + + + + + + | K | 3.9 | 3.4 - 5.1 | [facility] | | | | | mmol/L | [facility] | | | | | | [facility] | | | | | | [facility] - | | | | | | LABORATORY | | + + + + + + | Cl | 102 | 98 - 107 mmol/L | [facility] | | | | | | [facility] | | | | | | [facility] | | | | | | CENTER - | | | | | | LABORATORY | | + + + + + + | CO2 | 27 | 20 - 31 mmol/L | [facility] | | | | | | [facility] | | | | | | MED[facility] | | | | | | CENTER - | | | | | | LABORATORY | | + + + + + + | Anion Gap | 7 | 3 - 16 mmol/L | [facility] | | | | | | [facility] | | | | | | MED[facility] | | | | | | CENTER - | | | | | | LABORATORY | | + + + + + + | Glucose | 126 (H) | 60 - 106 mg/dL | [facility] | | | | | | [facility] | | | | | | [facility] | | | | | | CENTER - | | | | | | LABORATORY | | + + + + + + | BUN | 13 | 9 - 23 mg/dL | [facility] | | | | | | [facility] | | | | | | [facility] | | | | | | CENTER - | | | | | | LABORATORY | | + + + + + + | Creatinine | 0.81 | 0.55 - 1.02 | [facility] | | | | | mg/dL | [facility] | | | | | | MEDICAL | | | | | | CENTER - | | | | | | LABORATORY | | + + + + + + | eGFR if not | >60Comment: GLOMERULAR | >=60 | [facility] | | | | FILTRATION | mL/min/1.73m2 | [facility] | | | [place] | RATE,ESTIMATED mL/min | | MEDICAL | | | | /1.29r8Ncbe than 60 | | CENTER - | | | | Chronic kidney | | LABORATORY | | | | disease,if found over a | | | | | | 3-month period.Less than | | | | | | 15 Kidney | | | | | | failureFor | | | | | | Americans,multiply the | | | | | | calculated GFR by 1.21. | | | | | | | | | | + + + + + + | Ca | 9.6 | 8.7 - 10.4 | [facility] | | | | | mg/dL | [facility] | | | | | | MEDICAL | | | | | | CENTER - | | | | | | LABORATORY | | + + + + + + | Albumin | 4.4 | 3.2 - 4.8 g/dL | [facility] | | | | | [facility] | | | | | | [facility] | | | | | | [facility] - | | | | | | LABORATORY | | + + + + + + | Bilirubin | 0.4 | 0.3 - 1.2 mg/dL | [facility] | | | Total | | | [facility] | | | | | | [facility] | | | | | | CENTER - | | | | | | LABORATORY | | + + + + + + | Total | 6.7 | 5.7 - 8.2 g/dL | [facility] | | | Protein | | | [facility] | | | | | | MED[facility] | | | | | | CENTER - | | | | | | LABORATORY | | + + + + + + | AST | 21 | 0 - 34 U/L | [facility] | | | | | | [facility] | | | | | | MEDICAL | | | | | | CENTER - | | | | | | LABORATORY | | + + + + + + | ALT | 20 | 10 - 49 U/L | [facility] | | | | | | [facility] | | | | | | MEDICAL | | | | | | CENTER - | | | | | | LABORATORY | | + + + + + + | Alkaline | 90 | 46 - 116 U/L | [facility] | | | Phosphatase | | | [facility] | | | | | | MEDICAL | | | | | | CENTER - | | | | | | LABORATORY | | + + + + + + | Globulin | 2.3 | 2.1 - 3.8 g/dL | [facility] | | | | | | [facility] | | | | | | MEDICAL | | | | | | CENTER - | | | | | | LABORATORY | | + + + + + + | Albumin/Delmy | 1.9 | 0.8 - 1.9 | [facility] | | | bulin Ratio | | | [facility] | | | | | | MEDICAL | | | | | | CENTER - | | | | | | LABORATORY | | + + + + + + | BUN/Creatin | 16.0 | | [facility] | | | ine Ratio | | | [facility] | | | | | | MEDICAL | | | | | | CENTER - | | | | | | LABORATORY | | + + + + + + + + | Specimen | + + | Blood | + + + + + + + | Performing | Address | City/State/Zipcode | Phone Number | | Organization | | | | + + + + + | [facility] | [address] | [place] | [phone] | | [facility] | | [address] | | | - LABORATORY | | | | + + + + + CBC with Differential (03/09/2019 12:07 PDT) + + + + + + | Component | Value | Ref Range | Performed | Pathologist | | | | | At | Signature | + + + + + + | WBC | 7.3 | 4.0 - 11.0 K/uL | [facility] | | | | | | [facility] | | | | | | [facility] | | | | | | CENTER - | | | | | | LABORATORY | | + + + + + + | RBC | 4.76 | 3.70 - 5.20 | [facility] | | | | | M/uL | [facility] | | | | | | MED[facility] | | | | | | CENTER - | | | | | | LABORATORY | | + + + + + + | Hemoglobin | 14.4 | 11.5 - 16.0 | [facility] | | | | | g/dL | [facility] | | | | | | MEDICAL | | | | | | CENTER - | | | | | | LABORATORY | | + + + + + + | Hematocrit | 43.4 | 34.0 - 47.0 % | [facility] | | | | | | [facility] | | | | | | MEDICAL | | | | | | CENTER - | | | | | | LABORATORY | | + + + + + + | MCV | 91.2 | 83.0 - 101.0 fL | [facility] | | | | | | [facility] | | | | | | MEDICAL | | | | | | CENTER - | | | | | | LABORATORY | | + + + + + + | MCH | 30.3 | 28.0 - 35.0 pg | [facility] | | | | | | [facility] | | | | | | [facility] | | | | | | CENTER - | | | | | | LABORATORY | | + + + + + + | MCHC | 33.2 | 32.0 - 36.0 | [facility] | | | | | g/dL | [facility] | | | | | | MEDICAL | | | | | | CENTER - | | | | | | LABORATORY | | + + + + + + | RDW-CV | 14.3 | <15.0 % | [facility] | | | | | | [facility] | | | | | | MEDICAL | | | | | | CENTER - | | | | | | LABORATORY | | + + + + + + | RDW-SD | 48.0 (H) | 35.1 - 46.3 fL | [facility] | | | | | | [facility] | | | | | | [facility] | | | | | | CENTER - | | | | | | LABORATORY | | + + + + + + | Platelet | 228 | 140 - 440 K/uL | [facility] | | | Count | | | [facility] | | | | | | MEDICAL | | | | | | CENTER - | | | | | | LABORATORY | | + + + + + + | MPV | 8.7 | 6.5 - 12.4 fL | [facility] | | | | | | [facility] | | | | | | [facility] | | | | | | CENTER - | | | | | | LABORATORY | | + + + + + + | % | 51.3 | 45.0 - 82.0 % | [facility] | | | Neutrophils | | | [facility] | | | | | | MEDICAL | | | | | | CENTER - | | | | | | LABORATORY | | + + + + + + | % | 37.7 | 20.0 - 45.0 % | [facility] | | | Lymphocytes | | | [facility] | | | | | | MEDICAL | | | | | | CENTER - | | | | | | LABORATORY | | + + + + + + | % Monocytes | 9.6 | 4.0 - 12.0 % | [facility] | | | | | | [facility] | | | | | | [facility] | | | | | | CENTER - | | | | | | LABORATORY | | + + + + + + | % | 0.4 | 0.0 - 5.0 % | [facility] | | | Eosinophils | | | [facility] | | | | | | MEDICAL | | | | | | CENTER - | | | | | | LABORATORY | | + + + + + + | % Basophils | 0.7 | 0.0 - 1.0 % | [facility] | | | | | | [facility] | | | | | | MEDICAL | | | | | | CENTER - | | | | | | LABORATORY | | + + + + + + | % Immature | 0.3 | 0.0 - 0.4 % | [facility] | | | Granulocyte | | | [facility] | | | s | | | MEDICAL | | | | | | CENTER - | | | | | | LABORATORY | | + + + + + + | Absolute | 3.75 | 1.80 - 8.50 | [facility] | | | Neutrophils | | K/uL | [facility] | | | | | | [facility]ICAL | | | | | | CENTER - | | | | | | LABORATORY | | + + + + + + | Absolute | 2.75 | 0.60 - 3.20 | [facility] | | | Lymphocytes | | K/uL | [facility] | | | | | | MEDICAL | | | | | | CENTER - | | | | | | LABORATORY | | + + + + + + | Absolute | 0.70 | 0.00 - 1.00 | [facility] | | | Monocytes | | K/uL | [facility] | | | | | | MEDICAL | | | | | | CENTER - | | | | | | LABORATORY | | + + + + + + | Absolute | 0.03 | 0.00 - 0.40 | [facility] | | | Eosinophils | | K/uL | [facility] | | | | | | MEDICAL | | | | | | CENTER - | | | | | | LABORATORY | | + + + + + + | Absolute | 0.05 | 0.00 - 0.10 | [facility] | | | Basophils | | K/uL | [facility] | | | | | | MEDICAL | | | | | | CENTER - | | | | | | LABORATORY | | + + + + + + | Absolute | 0.02 | 0.00 - 0.03 | [facility] | | | Immature | | K/uL | [facility] | | | Granulocyte | | | MEDICAL | | | s | | | CENTER - | | | | | | LABORATORY | | + + + + + + | % nRBC | 0 | 0 - 2 per 100 | [facility] | | | | | WBCs | [facility] | | | | | | MEDICAL | | | | | | CENTER - | | | | | | LABORATORY | | + + + + + + | Absolute | 0.00 | 0.00 - 0.01 | [facility] | | | nRBC | | K/uL | [facility] | | | | | | MEDICAL | | | | | | CENTER - | | | | | | LABORATORY | | + + + + + + + + | Specimen | + + | Blood | + + + + + + + | Performing | Address | City/State/Zipcode | Phone Number | | Organization | | | | + + + + + | [facility] | [address] | [place] | [phone] | | [facility] | | [address] | | | - LABORATORY | | | | + + + + + Protime INR (03/09/2019 12:07 PDT) + + + + + + | Component | Value | Ref Range | Performed | Pathologist | | | | | At | Signature | + + + + + + | Prothrombin | 12.9 | 11.3 - 13.9 | [facility] | | | Time | | seconds | [facility] | | | | | | MEDICAL | | | | | | CENTER - | | | | | | LABORATORY | | + + + + + + | INR | 1.0Comment: Usual Oral | 0.9 - 1.1 | [facility] | | | | Anticoagulation | | [facility] | | | | Range: 2.0 - | | MEDICAL | | | | 3.0High Level Oral | | CENTER - | | | | Anticoagulation Range: | | LABORATORY | | | | 2.5 - 3.5 | | | | + + + + + + + + | Specimen | + + | Blood | + + + + + + + | Performing | Address | City/State/Zipcode | Phone Number | | Organization | | | | + + + + + | [facility] | [address] | [place], [place] | [phone] | | [facility] | | [address] | | | - LABORATORY | | | | + + + + + documented in this encounter Visit Diagnoses + + | Diagnosis | + + | Infiltrating ductal carcinoma of breast, unspecified laterality (HCC) - Primary | + + documented in this encounter"
--- OUTSIDE RECORDS SUMMARY | ~2019-03-24 | XMS | Clinical Summary ---
Demographics + + + | Address | [address] | | | [place] [address] | + + + | Home Phone | | + + + | Preferred Language | Unknown | + + + | Marital Status | | + + + | Hoahaoism Affiliation | Unknown | + + + | Race | Unknown | + + + | Ethnic Group | Unknown | + + + Author + + + | Author | [facility] | | | and [place] | + + + | Organization | [facility] | | | and [place] | + + + | Address | Unknown | + + + | Phone | Unavailable | + + + Support + + + + + | Name | Relationship | Address | Phone | + + + + + | Home Krishna | ECON | [address] | | | | | [place] | | | | | [address] | | + + + + + | Daisy Castillo | ECON | Unknown | | + + + + + Care Team Providers + +------+ + | Care Php Website Developer Name | Role | Phone | + +------+ + | Tien Rojas MD | PP | Unavailable | + +------+ + Allergies + + + + + + | Active Allergy | Reactions | Severity | Noted | Comments | | | | | Date | | + + + + + + | Acetaminophen-Codein | | | | | | e | | | | | + + + + + + | Cefazolin | Itching, Swelling, | High | 10/11/20 | Throat Swelling; | | | Rash | | 12 | redness | + + + + + + | Varenicline | Other (See Comments) | | 03/09/20 | Aggression, acid | | | | | 19 | reflux | + + + + + + | Dexamethasone | Other (See Comments) | High | 07/09/20 | Aggressive; angry | | | | | 17 | | + + + + + + | Hydrocodone | | | 04/07/20 | | | | | | 12 | | + + + + + + | Penicillins | | | 11/25/19 | | | | | | 13 | | + + + + + + | Prednisone | Other (See Comments) | High | 07/09/20 | Aggressive, Angry | | | | | 17 | | + + + + + + | Trazodone | | | 01/17/20 | nightmares | | | | | 14 | | + + + + + + | Vancomycin | Itching | | 10/11/20 | | | | | | 12 | | + + + + + + Medications + + + +---------+------+------+-------+ | Medication | Sig | Dispensed | Refills | Star | End | Statu | | | | | | t | Date | s | | | | | | Date | | | + + + +---------+------+------+-------+ | omeprazole | Take 20 mg by mouth | | 0 | | | Activ | | (PRILOSEC) 20 mg | every morning | | | | | e | | capsule | (before breakfast). | | | | | | | | | | | | | | + + + +---------+------+------+-------+ | guaiFENesin | Take 200 mg by mouth | | 0 | | | Activ | | (TUSSIN CHEST | 3 times daily as | | | | | e | | CONGESTION) 100 mg/5 | needed. | | | | | | | mL syrup | | | | | | | + + + +---------+------+------+-------+ | acetaminophen | Take 325 mg by mouth | | 0 | | | Activ | | (TYLENOL) 325 mg | as needed. | | | | | e | | tablet | | | | | | | + + + +---------+------+------+-------+ | diphenhydrAMINE | Take 50 mg by mouth | | 0 | | | Activ | | (BENADRYL) 50 MG | Daily. | | | | | e | | tablet | | | | | | | + + + +---------+------+------+-------+ | lactobacillus GG | Take 1 capsule by | | 0 | | | Activ | | (CULTURELLE) capsule | mouth Daily. | | | | | e | + + + +---------+------+------+-------+ | multivitamin | Take 1 tablet by | | 0 | 09/1 | | Activ | | (THERAGRAN) tablet | mouth Daily. | | | 320 | | e | | | | | | 12 | | | + + + +---------+------+------+-------+ | ranitidine | Take 150 mg by mouth | | 0 | | | Activ | | (ZANTAC) 150 MG | Daily. | | | | | e | | capsule | | | | | | | + + + +---------+------+------+-------+ | nefazodone | Take 150 mg by mouth | | 0 | | | Activ | | (SERZONE) 50 MG | nightly. | | | | | e | | tablet | | | | | | | + + + +---------+------+------+-------+ | | Take 15 mLs by mouth | | 0 | | | Activ | | HYDROcodone-acetamin | Twice daily as | | | | | e | | ophen (HYCET) | needed for Pain. | | | | | | | 7.5-325 mg/15 mL | | | | | | | | liquid | | | | | | | + + + +---------+------+------+-------+ | | Take 10 mLs by mouth | | 0 | | | Activ | | promethazine-codeine | 4 times daily as | | | | | e | | (PHENERGAN WITH | needed for Cough. | | | | | | | CODEINE) 6.25-10 | | | | | | | | mg/5 mL syrup | | | | | | | + + + +---------+------+------+-------+ | B Complex Vitamins | Take by mouth. | | 0 | | | Activ | | (VITAMIN B COMPLEX | | | | | | e | | PO) | | | | | | | + + + +---------+------+------+-------+ | ibuprofen | Take 800 mg by mouth | | 0 | | | Activ | | (ADVIL,MOTRIN) 800 | every 6 hours as | | | | | e | | MG tablet | needed for Pain. | | | | | | + + + +---------+------+------+-------+ | albuterol | Inhale 1-2 puffs | | 0 | | | Activ | | (PROVENTIL HFA) 90 | into the lungs | | | | | e | | mcg/puff inhaler | Daily. | | | | | | + + + +---------+------+------+-------+ | aspirin 325 mg | Take 325 mg by mouth | | 0 | | | Activ | | tablet | Daily. | | | | | e | + + + +---------+------+------+-------+ | docusate sodium | Take 250 mg by mouth | | 0 | | | Activ | | (COLACE) 250 MG | Daily. | | | | | e | | capsule | | | | | | | + + + +---------+------+------+-------+ | traMADol (ULTRAM) | Take 100 mg by mouth | | 0 | | | Activ | | 50 mg tablet | nightly as needed. | | | | | e | + + + +---------+------+------+-------+ | mometasone | Apply 1 Application | | 0 | | | Activ | | (ELOCON) 0.1 % | topically as needed. | | | | | e | | ointment | | | | | | | + + + +---------+------+------+-------+ | FLUTICASONE | 0.055 mg by Nasal | | 0 | | | Activ | | FUROATE NA | route. 2 Sprays in | | | | | e | | | each nostril by | | | | | | | | intranasal route | | | | | | | | daily | | | | | | + + + +---------+------+------+-------+ | | Take 2 tablets by | | 0 | | | Activ | | Phenylephrine-Acetam | mouth as needed | | | | | e | | inophen (TYLENOL | (Allergies). | | | | | | | SINUS | | | | | | | | CONGESTION/PAIN PO) | | | | | | | + + + +---------+------+------+-------+ | SIMETHICONE PO | Take 25 mg by mouth | | 0 | | | Activ | | | as needed. | | | | | e | + + + +---------+------+------+-------+ | calcium carbonate | Take 1 tablet by | | 0 | | | Activ | | (TUMS) 500 mg | mouth as needed for | | | | | e | | chewable tablet | Heartburn. | | | | | | + + + +---------+------+------+-------+ | Potassium | Take 1 tablet by | | 0 | | | Activ | | Gluconate 595 (99 K) | mouth every morning. | | | | | e | | MG TABS | | | | | | | + + + +---------+------+------+-------+ | Loratadine 10 MG | Take 1 capsule by | | 0 | | | Activ | | CAPS | mouth Daily. | | | | | e | + + + +---------+------+------+-------+ | | Take 1 capsule by | | 0 | | | Activ | | Glucosamine-Chondroi | mouth Daily. | | | | | e | | t-Vit C-Mn | | | | | | | | (GLUCOSAMINE CHONDR | | | | | | | | 1500 COMPLX) CAPS | | | | | | | + + + +---------+------+------+-------+ | betamethasone | Apply 2-3 | | 0 | | | Activ | | dipropionate 0.05% | Application | | | | | e | | lotion | topically Twice | | | | | | | | daily as needed. 2-3 | | | | | | | | GTTS in each ear | | | | | | | | twice daily as | | | | | | | | needed | | | | | | + + + +---------+------+------+-------+ | buPROPion | Take 100 mg by mouth | | 0 | | | Activ | | (WELLBUTRIN) 100 mg | Daily. | | | | | e | | tablet | | | | | | | + + + +---------+------+------+-------+ Active Problems + + + | Problem | Noted Date | + + + | INFILTRATING DUCTAL CARCINOMA, LEFT BREAST | | + + + Encounters +--------+ + + + + | Date | Type | Specialty | Care Team | Description | +--------+ + + + + | 03/09/ | Hospital | | Kevin Cerrato | Pulmonary nodules | | 2019 | Encounter | | MD [facility]kson | | +--------+ + + + + | 03/09/ | Hospital | | Kevin Cerrato | Infiltrating ductal | | 2019 | Encounter | | MD [facility]kson | carcinoma of breast, | | | | | | unspecified | | | | | | laterality (HCC) | | | | | | (Primary Dx) | +--------+ + + + + from Last 3 Months Immunizations + + + + | Name | Dates Previously Given | Next Due | + + + + | TD PF (2 LF TETANUS) | 03/25/2012 | | | (ADOL/ADULT) | | | + + + + Family History + + +------+ + | Medical History | Relation | Name | Comments | + + +------+ + | Early | Father | | Drowning | + + +------+ + | Heart failure | Maternal | | | | | Aunt | | | + + +------+ + | Tuberculosis | Maternal | | | | | Grandfath | | | | | er | | | + + +------+ + | Tuberculosis | Maternal | | | | | Grandmoth | | | | | er | | | + + +------+ + | Other (see comment) | Mother | | polio/tuberculosis | + + +------+ + | Ovarian cancer | Mother | | metastatic | + + +------+ + | Tuberculosis | Mother | | | + + +------+ + | Alcohol abuse | Other | | | + + +------+ + | Arthritis | Other | | | + + +------+ + | Heart disease | Other | | | + + +------+ + | Hypertension | Other | | | + + +------+ + | No known problems | Paternal | | | | | Grandfath | | | | | er | | | + + +------+ + | No known problems | Paternal | | | | | Grandmoth | | | | | er | | | + + +------+ + + +------+ + + | Relation | Name | Status | Comments | + +------+ + + | Father | | | drowning | | | | (Age | | | | | 35) | | + +------+ + + | Maternal Aunt | | | | + +------+ + + | Maternal Grandfather | | | | + +------+ + + | Maternal Grandmother | | | | + +------+ + + | Mother | | | ovarian cancer | | | | (Age | | | | | 83) | | + +------+ + + | Other | | | | + +------+ + + | Paternal Grandfather | | | | + +------+ + + | Paternal Grandmother | | | | + +------+ + + Social History + + + [...] | 2015 | + +---+---+--------+ + + | Tobacco Cessation: Ready to Quit: No | + + + + +---------+ + | Alcohol Use [...] recent travel history available. | + + Last Filed Vital Signs + + + [...] + + + | Respiratory Rate | 16 | 09/08/2018945 PDT | + + + + | Oxygen Saturation | 96% | 03/09/20191351 PDT | + + + + | Inhaled Oxygen | - | - | | Concentration | | | + + + + | Weight | 74.2 kg (163 lb 9.3 | 03/09/2019 1352 PDT | | | oz) | | + + + + | Height | 165.1 cm (5' 5") | 10/01/2017 1020 PST | + + + + | Body Mass Index | 27.22 | 10/01/2017 1020 PST | + + + + Plan of Treatment +--------+ + + + + | Date | Type | Specialty | Care Team | Description | +--------+ + + + + | 03/13/ | Appointment | | Kevin Cerrato | | | 2019 | | | MD Erickson [address] | | | | | [address] | | | | | | [place] [address] | | | | | | [phone] | | | | | | | | +--------+ + + + + + + + + + | Health Maintenance | Due Date | Last Done | Comments | + + + + + | Hepatitis C | | | | | Screening | 4 | | | + + + + + | Vaccine: | | | | | Pneumococcal 19-64 | 3 | | | | Highest Risk (1 of 3 | | | | | - PCV13) | | | | + + + + + | Colorectal Cancer | | | | | Screening | 4 | | | | (Colonoscopy) | | | | + + + + + | Vaccine: Zoster (1 | | | | | of 2) | 4 | | | + + + + + | Vaccine: | | 03/25/2012 | | | Dtap/Tdap/Td (1 - | 2 | | | | Tdap) | | | | + + + + + | Cervical Cancer | | 11/16/2007 | | | Screening (Pap) | 3 | | | + + + + + | Breast Cancer | | 03/21/2015 | | | Screening (Ages | 7 | | | | 50-74) | | | | + + + + + | Vaccine: Influenza | | | | | (Season Ended) | 9 | | | + + + + + | Lung Cancer | | 03/09/2019, 03/05/2018, | | | Screening | 0 | 10/15/2015 | | + + + + + Procedures + +--------+ + + + | [...] section. | + +--------+ + + + | [...] | | + +--------+ + + + from Last [address] Chest wo Contrast (03/09/2019 12:41 [...] | | | + +---------+ + + Protime INR (03/09/2019 12:07 PDT) [...] + | [facility] | [address] | [place] | [phone] | | [facility] | | [address] | | | - LABORATORY | | [...] + + | [facility] | [address] | [place] | [phone] | | [facility] | | [address] | | | - LABORATORY | | | | + + + + + Comprehensive Metabolic Panel (03/09/2019 12:07 PDT) + + + + + + | Component | Value | Ref Range | Performed | Pathologist | | | | | At | Signature | + + + + + + | Na | 136 | 136 - 145 | [facility] | | | | | mmol/L | [facility] | | | | | | MEDICAL | | | | | | CENTER - | | | | | | LABORATORY | | + + + + + + | K | 3.9 | 3.4 - 5.1 | [facility] | | | | | mmol/L | [facility] | | | | | | [...] 13 | 9 - 23 mg/dL | [facility] | | | | | | [facility] | | | | | | MEDICAL | | | | | | CENTER - | | | | | | LABORATORY | | + + + + + + | Creatinine | 0.81 | 0.55 - 1.02 | [facility] | | | | | mg/dL | [facility] | | | | | | MEDICAL | | | | | | CENTER - | | | | | | LABORATORY | | + + + + + + | eGFR if not | >60Comment: GLOMERULAR | >=60 | [facility] | | | | FILTRATION | mL/min/1.73m2 | [facility] | | | [place] | RATE,ESTIMATED mL/min | | MEDICAL | | | | /1.91y6Onuz than 60 | | CENTER - | [...] | 9.6 | 8.7 - 10.4 | [facility] | | | | | mg/dL | [facility] | | | | [...] | | | Total | | | [facility] | | | | | | MEDICAL | | | | | | CENTER - | | | | | | LABORATORY | | + + + + + + | Total | 6.7 | 5.7 - 8.2 g/dL | [facility] | | | Protein | | | [facility] | | [...] | + + + + + | [facility] | [address] | [place], [place] | [phone] | | [facility] | | [address] | | | - LABORATORY | | | | + + + + + from Last 3 Months Insurance +-------+--------+ +--------+-------+---------+------+ | Payer | Benefi | Subscriber | Effect | Phone | Address | Type | | | t Plan | ID | harsha | | | | | | / | | Dates | | | | | | Group | | | | | | +-------+--------+ +--------+-------+---------+------+ | BCBS | BCBS | [id number] | 11/16/19 | | | PPO | | | OOS | 3 | 18-Pre | | | | | | PPO | | sent | | | | +-------+--------+ +--------+-------+---------+------+ + +--------+ +--------+ + + | Guarantor Name | Accoun | Relation to | Date | Phone | Billing Address | | | t Type | Patient | of | | | | | | | | | | + +--------+ +--------+ + + | Liliana Levine | Person | Self | [birth year] | [address] | | | al/Fam | | 1955 | [phone] | [place] [address] | | | devi | | | 6 (Home) | | | | | | | [phone] | | | | | | | 0 (Work) | | + +--------+ +--------+ + + Advance Directives Patient has advance care planning documents on file. For more information, please contact:[facility] [place] [address]
--- OUTSIDE RECORDS SUMMARY | ~2019-03-24 | XMS | Clinical Summary ---
Demographics + + + | Address | [address] | | | [place] [address] | + + + | Home Phone | | + + + | Preferred Language | Unknown | + + + | Marital Status | | + + + | Yazidi Affiliation | Unknown | + + + | Race | Unknown | + + + | Ethnic Group | Unknown | + + + Author + + + | Author | [facility] | | | and [place] | + + + | Organization | [facility] | | | and [place] | + + + | Address | Unknown | + + + | Phone | Unavailable | + + + Support + + + + + | Name | Relationship | Address | Phone | + + + + + | Home Krishna | ECON | [address] | | | | | [place] | | | | | [address] | | + + + + + | Daisy Castillo | ECON | Unknown | | + + + + + Care Team Providers + +------+ + | Care Medical Technologist Clinical Name | Role | Phone | + [...] | | | | | | [place] [address] | | | | | | [phone] | | | | | | | [...] + | [facility] | [address] | [place] | [phone] | | [facility] | | [address] | | | - LABORATORY | | [...] [address] | [place] | [phone] | | [facility] | | [address] | | | - LABORATORY | | [...] 13 | 9 - 23 mg/dL | [facility] | | | | | | [facility] | | | | | | MEDICAL | | | | | | CENTER - | | | | | | LABORATORY | | + + + + + + | Creatinine | 0.81 | 0.55 - 1.02 | [facility] | | | | | mg/dL | [facility] | | | | | | MEDICAL | | | | | | CENTER - | | | | | | LABORATORY | | + + + + + + | eGFR if not | >60Comment: GLOMERULAR | >=60 | [facility] | | | | FILTRATION | mL/min/1.73m2 | [facility] | | | [place] | RATE,ESTIMATED mL/min | | MEDICAL | | | | /1.35s4Kuxa than 60 | | CENTER - | [...] ST. | [address] | [place], [place] | [phone] | | [facility] | | [address] | | | - LABORATORY | | [...] +-------+--------+ +--------+-------+---------+------+ | BCBS | BCBS | [id number] | 11/16/19 | | | PPO | [...] | | al/Fam | | 1955 | [phone] | [place] [address] | | | devi | | | 6 (Home) | | | | | | | [phone] | | | | | | | 0 (Work) | | + +--------+ +--------+ + + Advance Directives Patient has advance care planning documents on file. For more information, please contact:[facility] [place] [address]
--- OUTSIDE RECORDS SUMMARY | ~2019-03-24 | XMS | Encounter Summary ---
Demographics + + + | Address | [address] | | | [place] [address] | + + + | Home Phone | | + + + | Preferred Language | Unknown | + + + | Marital Status | | + + + | Congregation Affiliation | Unknown | + + + | Race | Unknown | + + + | Ethnic Group | Unknown | + + + Author + + + | Author | [facility] | | | and [place] | + + + | Organization | [facility] | | | and [place] | + + + | Address | Unknown | + + + | Phone | Unavailable | + + + Support + + + + + | Name | Relationship | Address | Phone | + + + + + | Home Krishna | ECON | [address] | | | | | [place] | | | | | [address] | | + + + + + | Daisy Castillo | ECON | Unknown | | + + + + + Care Team Providers + +------+ + | Care Hydro Station Supervisor Name | Role | Phone | + [...] | | breast, | [facility] [place] [address] | | | | | unspecified | [place], [place] | [place], | | | | | laterality | [address] | [place] [address] | | | | | (HCC) | Phone: | Phone: | | | | | Procedures | [phone] | [phone] | | | | | CT Chest wo | Fax: | Fax: | | | | | Contrast | [phone] | [phone] | + +--------+ + + + + [...] | | | | CARCINOMA, | [address] | [address] [place] | | | | | LEFT BREAST | [place], | [place], [place] | | | | | Procedures | [place] | [address] Phone: | | | | | [address] | [address] | [phone] | | | | | | Phone: | Fax: | | | | | | [phone] | [phone] | | | | | | Fax: | | | | | | | [phone] | | + +--------+ + + + + Encounter Details +--------+ + + + + | Date | Type | Department | Care Team | Description | +--------+ + + + + | [facility]09/ Hospital | [facility] | Kevin Cerrato | Infiltrating ductal | | 2019 | Encounter | [facility] | MD [facility] [address] | carcinoma of breast, | | | | [facility] [address] [place] | unspecified | | | | [address] [place] | [place] [address] | laterality (HCC) | | | | [place] [address] | [phone] | (Primary Dx) | | | | [phone] | | | +--------+ + + + [...] documented as of this encounter Progress Notes Keivn Cerrato MD - 03/09/2019 1406 PDTFormatting of this note might be differen t from the original. Hem-Onc Progress Note [facility] Pt. Name/Age/: Liliana Levine 63 y.o. 1955 Med. Record Number: [id number] Date of admission: 03/09/2019 Assessment and plan: 1. Carcinoma of the left breast. a. Infiltrating ductal carcinoma. b. Clinical T2 N1 stage IIB. c. ER/IN negative, HER-2/marietta negative consistent with triple negative [...] Procedure Laterality Date APPENDECTOMY 1978 [facility] Hosp bone spurs Left 12/22/2018 Dr. Raji Augustine BREAST LUMPECTOMY Left 10/26/2012 wire localized, with full axillary lymph node dissection and removal of a left-sided subca vian [facility] BREAST LUMPECTOMY Left 03/2012 infiltrating ductal carcinoma by biopsy CARPAL TUNNEL RELEASE Bilateral 2016 [facility] CATARACT REMOVAL Bilateral 2017 SINUS SURGERY [...] in each nostril by intranasal route daily Nfgpshfglkk-Vnnaimrtp-Lnz C-Mn (GLUCOSAMINE CHONDR 1500 COMPLX) CAPS Take [...] Electronically signed by: Kevin Cerrato, 03/09/2019 14:06 [facility] TIME SPENT 25 MIN. > 50% AT BEDSIDE, WITH FAMILY/PATIENT IN CARE AND HORSE STUD WORKER ON UNIT AND CO ORDINATION OF CARE Portions of this chart may have been created with [email or web address] voice recognition software. Occasi onal wrong-word or [...] | | | | | [place] [address] | | | | | | [phone] | | | | | | | [...] | 0.81 | 0.55 - 1.02 | [facility] | | | | | mg/dL | [facility] | | | | | | MEDICAL | | | | | | CENTER - | | | | | | LABORATORY | | + + + + + + | eGFR if not | >60Comment: GLOMERULAR | >=60 | [facility] | | | | FILTRATION | mL/min/1.73m2 | [facility] | | | [place] | RATE,ESTIMATED mL/min | | MEDICAL | | | | /1.87h6Tgcs than 60 | | CENTER - | [...] | 9.6 | 8.7 - 10.4 | [place] | | | | | mg/dL | [facility] | | | | | | MEDICAL [...] + | [facility] | [address] | [place] | [phone] | | [facility] | | [address] | | | - LABORATORY | | [...] [address] | [place] | [phone] | | [facility] | | [address] | | | - LABORATORY | | [...] ST. | [address] | [place], [place] | [phone] | | [facility] | | [address] | | | - LABORATORY | | | | + + + + + documented in this encounter Visit Diagnoses + + | Diagnosis | + + | Infiltrating ductal carcinoma of breast, unspecified laterality (HCC) - Primary | + + documented in this encounter"
--- OUTSIDE RECORDS SUMMARY | ~2019-03-24 | XMS | Clinical Summary ---
Demographics + + + | Address | [address] | | | [place] [address] | + + + | Home Phone | | + + + | Preferred Language | Unknown | + + + | Marital Status | | + + + | Christianity Affiliation | Unknown | + + + | Race | Unknown | + + + | Ethnic Group | Unknown | + + + Author + + + | Author | [facility] | + + + | Organization | [facility] | + + + | Address | Unknown | + + + | Phone | Unavailable | + + + Support + + +---------+ + | Name | Relationship | Address | Phone | + + +---------+ + | Home Steward | ECON | Unknown | | + + +---------+ + Care Team Providers + +------+ + | Care Materials And Processes Manager Name | Role | Phone | + +------+ + | Tien Rojas MD | PP | | + +------+ + Allergies Not on File Current Medications Not on file Active Problems Not on file Social History + +-------+ +--------+------+ | Tobacco Use | Types | Packs/Day | Years | Date | | | | | Used | | + +-------+ +--------+------+ | Never Assessed | | | | | + +-------+ +--------+------+ + + + | Sex Assigned at | Date Recorded | | | | + + + | Not on file | | + + + Plan of Treatment Not on file Results Not on filefrom Last 3 Months Insurance + +--------+ +------+-------+ + | Payer | Benefi | Subscriber | Type | Phone | Address | | | t Plan | ID | | | | | | / | | | | | | | Group | | | | | + +--------+ +------+-------+ + | [employer] | [employer]MER | [id number] | | | [address] [address] | | | A BLUE | 3 | | | [place], [place] | | | CARD | | | | [phone] | + +--------+ +------+-------+ + | [employer] | [employer]DS | [id number] | | | | | | HEALTH | | | | | | | PLAN | | | | | + +--------+ +------+-------+ + + +--------+ +--------+ + + | Guarantor Name | Accoun | Relation to | Date | Phone | Billing Address | | | t Type | Patient | of | | | | | | | | | | + +--------+ +--------+ + + | LILIANA MARTINEZ | Person | Self [birth year] | Home: | [address] | | | al/Christian | | [phone] [place] [address] | | | devi | | | [phone] | | + +--------+ +--------+ + +"
--- OUTSIDE RECORDS SUMMARY | ~2019-03-24 | XMS | Clinical Summary ---
Demographics + + + | Address | [address] | | | [place] [address] | + + + | Home Phone | | + + + | Preferred Language | Unknown | + + + | Marital Status | | + + + | Congregational Affiliation | Unknown | + + + | Race | Unknown | + + + | Ethnic Group | Unknown | + + + Author + + + | Author | [facility] | + + + | Organization | [facility] | + + + | Address | Unknown | + + + | Phone | Unavailable | + + + Support + + +---------+ + | Name | Relationship | Address | Phone | + + +---------+ + | Home Steward | ECON | Unknown | | + + +---------+ + Care Team Providers + +------+ + | Care Power Sweeper Operator Name | Role | Phone | + [...] +------+-------+ + | PREMERA | PREMER | [id number] | | | [address] [address] | | | A BLUE | [address] | | | [place], [place] | | | CARD | | | | [address] | + +--------+ +------+-------+ + | [employer] | ODS | [id number] | | | | | | HEALTH [...] | 4 | [phone] | [place] [address] | | | devi | | | [phone] | | + +--------+ +--------+ + +"
--- OUTSIDE RECORDS SUMMARY | ~2019-03-24 | XMS | Encounter Summary ---
Demographics + + + | Address | [address] | | | [place] [address] | + + + | Home Phone | | + + + | Preferred Language | Unknown | + + + | Marital Status | | + + + | Episcopal Affiliation | Unknown | + + + | Race | Unknown | + + + | Ethnic Group | Unknown | + + + Author + + + | Author | [facility] | | | and [place] | + + + | Organization | [facility] | | | and [place] | + + + | Address | Unknown | + + + | Phone | Unavailable | + + + Support + + + + + | Name | Relationship | Address | Phone | + + + + + | Home Krishna | ECON | [address] | | | | | [place] | | | | | [address] | | + + + + + | Daisy [place] | ECON | Unknown | | + + + + + Care Team Providers + +------+ + | Care Mogul Operator Name | Role | Phone | [...] | | Pulmonary | Saqib, | [address] | | | | | nodules | Kevin | [place], | | | | | Procedures | [place] | [place] [address] | | | | | CT Chest wo | [address] | Phone: | | | | | Contrast | [address] [place] | [phone] | | | | | | [place] | Fax: | | | | | | [address] | [phone] | | | | | | Phone: | | | | | | | [phone] | | | | | | | Fax: | | | | | | | [phone] | | +--------+--------+ + + + + [...] | | Pulmonary | Cerrato, | [address] | | | | | nodules | Kevin | [place], | | | | | Procedures | [place] | [place] [address] | | | | | CT Chest wo | [address] | Phone: | | | | | Contrast | [address] [place] | [phone] | | | | | | [place], [place] | Fax: | | | | | | [phone] | [phone] | | | | | | Phone: | | | | | | | [phone] | | | | | | | Fax: | | | | | | | [phone] | | +--------+--------+ + + + + [...] | | Pulmonary | Cerrato, | [address] | | | | | nodules | Kevin | [place], | | | | | Procedures | [place] | [place] [address] | | | | | CT Chest wo | [address] | Phone: | | | | | Contrast | [place] | [phone] | | | | | | [place] | Fax: | | | | | | [address] | [phone] | | | | | | Phone: | | | | | | | [phone] | | | | | | | Fax: | | | | | | | [phone] | | +--------+--------+ + + + + Encounter Details +--------+ + + + + | Date | Type | Department | Care Team | Description | +--------+ + + + + | 03/09/ | Hospital | [facility] | Kevin Cerrato | Pulmonary nodules | | 2019 | Encounter | [facility] [address] | [place] [address] | | | | [place], | [address] [place] | | | | | [place] [address] | [place] [address] | | | | | [phone] | [phone] | | | | | | | [...] | | | | | [place] [address] | | | | | | [phone] | | | | | | | [...] Dictated and Signed | | | by: Iyla Mayorga MD Electronically signed: 03/10/2019 3:25 PM [...]
--- OUTSIDE RECORDS SUMMARY | 2019-03-24 13:44 | XMS ---
PreManage Notification: OSMAR FOOTE Security Title Curator Events No recent Security Events currently on file CR[facility]IA MET [facility] There are no care providers on record at this time. Ashley has no Care Guidelines for this patient. Alissa VISIT COUNT (12 MO.) 1 CAMILO Hwang TOTAL 1 NOTE: Visits indicate total known visits. ED/UCC VISIT TRACKING (12 MO.) 03/24/2019 13:42 CAMILO Ramon OR TYPE: Emergency COMPLAINT: - BLOOD PRESSURE PROBLEM INPATIENT VISIT TRACKING (12 MO.) No inpatient visits to display in this time frame [id number]
[2019-03-24] MEDS ORDERED: HYDROCODONE-AC118 M1 PO (14:49)
[2019-03-24] MEDS ORDERED: COLACE100 MG PO (14:49)
[2019-03-24] MEDS ORDERED: METOPROLOL SUCC25 MG PO (16:09)
--- NOTE | 2019-03-25 00:53 | EKG ---
[facility] [address] [place] [address] Signed Sinus rhythm with marked sinus arrhythmia Cannot rule out Anterior infarct , age undetermined Abnormal ECG When compared with ECG of 16-DEC-2018 13:52, premature ventricular complexes are no longer present Left bundle branch block is no longer present Minimal criteria for Anterior infarct are now present Confirmed by ED FARRELL MD ([id number]) on 03/25/2019 12:53:34 AM Electronically Signed By: ED FARRELL MD 03/25/19 0053 PATIENT NAME: OSMAR MARTINEZ Electrocardiogram DATE OF : 53 PHYSICIAN: ED FARRELL MD REPORT #: [id number] REPORT IS CONFIDENTIAL AND NOT TO BE RELEASED WITHOUT AUTHORIZATION
== END 2019-03-24 16:39 | disposition home or self-care (01) ==
LOC: ED 13:41
DX: R03.0 Elevated blood-pressure reading, without diagnosis of hypertension (principal); J44.9 Chronic obstructive pulmonary disease, unspecified; F17.200 Nicotine dependence, unspecified, uncomplicated; Z85.3 Personal history of malignant neoplasm of breast; Z88.0 Allergy status to penicillin; Z88.1 Allergy status to other antibiotic agents; Z79.82 Long term (current) use of aspirin; Z79.899 Other long term (current) drug therapy
CPT/HCPCS: 36415; 71045; 80048; 84484; 85025; 93005; 93010; 99283-25